=== PATIENT | female | born 1970 | race Caucasian/White ===

== ENCOUNTER 2017-05-02 12:45 | Emergency (ER) | payer MEDICAID, OTHER ==
[~2017-05-02] VITALS: Ht 167.6 cm; Wt 95.3 kg
[~2017-05-02 12:45] MED LIST: CLON1TAB; DANA200C; INSLANTI; METF850T; PIOG15TA38; PROZAC; ROSU10TA16; [UNRECOGNIZED DRUG - CODE]; [UNRECOGNIZED DRUG - CODE]
[2017-05-02 12:58] VITALS: BP 121/59
== END 2017-05-02 14:26 | disposition left against medical advice (07) ==
LOC: EDBD 12:45 → ER 12:45
DX: F41.9 Anxiety disorder, unspecified (principal); Z53.21 Procedure and treatment not carried out due to patient leaving prior to being seen by health care provider
CPT/HCPCS: 93005